=== PATIENT | male | born 1980 | race Caucasian/White ===

== ENCOUNTER 2019-01-24 13:55 | Emergency (ER) | payer BC ==
[2019-01-24] MEDS ORDERED: Lidocaine 1% 10 ML MDV INJECT ONE (14:44)
[2019-01-24] MEDS ORDERED: Diphtheria,Pertussis(Acell),Tetanus Vaccine 0.5 ML Syringe IM ONE (14:44)
--- NOTE | 2019-01-24 14:52 | EDM.PDOC ---
ED HPI GENERAL MEDICAL PROBLEM - General Chief Complaint: Laceration Stated Complaint: LT POINTER FINGER LAC Time Seen by Provider: 01/24/19 14:17 Source of Information: Reports: Patient, RN Notes Reviewed History Limitations: Reports: No Limitations - History of Present Illness INITIAL COMMENTS - FREE TEXT/NARRATIVE: Patient is a 38-year-old male who presents to the ED for evaluation of a left pointer finger laceration. Patient states shortly prior to arrival to the ER, he was using a utility knife, and ended up slicing his left pointer finger. This resulted in a roughly 2 cm linear laceration to the lateral aspect of the distal fingertip of the left pointer finger. Patient states that the bleeding was under control, but he wasn't sure if it was deep enough to need stitches or not, so he comes here for evaluation. Patient states he is not sure when his last tetanus was given. He denies any numbness and tingling distal to the injury site. He can move his finger in all range of motion. He is right hand dominant. Left Finger-Little Pain Score (Numeric/FACES): 1 - Related Data Allergies Allergy/AdvReac Type Severity Reaction Status Date / Time desloratadine Allergy Other Verified 01/24/19 14:20 [From Clarinex-D] pseudoephedrine Allergy Other Verified 01/24/19 14:20 [From Clarinex-D] Home Meds: Home Meds Dicyclomine [Bentyl] 10 mg PO DAILY 01/24/19 [History] Pantoprazole Sodium [Protonix] 20 mg PO DAILY 01/24/19 [History] Sertraline [Zoloft] 100 mg PO DAILY 01/24/19 [History] Sucralfate [Carafate] 1 gm PO QID PRN 01/24/19 [History] Past Medical History - Past Surgical History HEENT Surgical History: Reports: Myringotomy w Tube(s) Male Surgical History: Reports: Vasectomy Social & Family History - Tobacco Use Smoking Status *Q: Current Every Day Smoker Years of Tobacco use: 25 Packs/Tins Daily: 1 - Caffeine Use Caffeine Use: Reports: Coffee, Energy Drinks - Recreational Drug Use Recreational Drug Use: No ED ROS GENERAL - Review of Systems Review Of Systems: Comprehensive ROS is negative, except as noted in HPI. Skin: Reports: Wound (2cm linear lac to L lateral pointer finger) Neurological: Denies: Numbness, Tingling ED EXAM, SKIN/RASH Exam: See Below Exam Limited By: No Limitations General Appearance: Alert, WD/WN, No Apparent Distress Respiratory/Chest: No Respiratory Distress, Lungs Clear, Normal Breath Sounds, No Accessory Muscle Use, Chest Non-Tender Cardiovascular: Normal Peripheral Pulses, Regular Rate, Rhythm, No Murmur Peripheral Pulses: 3+: Radial (L), Radial (R) Extremities: Normal Range of Motion, Non-Tender, Normal Capillary Refill Neurological: Alert, Oriented, Normal Cognition, No Motor/Sensory Deficits Psychiatric: Normal Affect, Normal Mood Skin: Warm, Dry, Normal Color, No Rash, Wound/Incision (2 cm linear laceration to distal Left lateral pointer finger, this did involve a small bit of the nail , but is well intact, no disruption of the nailbed was noted.) ED SKIN PROCEDURES - Laceration/Wound Repair Left Lateral Distal Digit - 2nd (Index) Appearance: Superficial, Linear, Clean Distal NVT: Neuro & Vascular Intact, No Tendon Injury Anesthetic Type: Local Local Anesthesia - Lidocaine (Xylocaine): 1% Plain Local Anesthetic Volume: 3cc Skin Prep: Chlorhexidine (Hibiciens), Saline Exploration/Debridement/Repair: Wound Explored, In a Bloodless Field, Explored to Base, No Foreign Material Found Closed with: Sutures Lac/Wound length In cm: 2 Suture Size: 4-0 # of Sutures: 5 Suture Type: Prolene, Interrupted, Simple Sterile Dressing Applied: Nurse Tetanus Status Addressed: Yes (Tdap given today) Complications: No Course - Vital Signs Last Recorded V/S: Last Vital Signs Temp 98.2 F 01/24/19 14:17 Pulse 72 01/24/19 14:17 Resp 18 01/24/19 14:17 BP 158/105 H 01/24/19 14:17 Pulse Ox 98 01/24/19 14:17 - Orders/Labs/Meds Orders: Active Orders 24 hr Category Date Time Status Vaccines to be Administered [RC] PER UNIT ROUTINE Care 01/24/19 14:44 Ordered Meds: Medications Discontinued Medications Generic Name Dose Route Start Last Admin Trade Name Freq PRN Reason Stop Dose Admin Diphtheria/Tetanus/Acell Pertussis 0.5 ml 01/24/19 14:44 01/24/19 14:58 Adacel IM 01/24/19 14:45 0.5 ml .ONCE ONE Administration Lidocaine HCl 10 ml 01/24/19 14:44 01/24/19 14:58 Xylocaine 1% INJECT 01/24/19 14:45 10 ml ONETIME ONE Administration Departure - Departure Time of Disposition: 14:56 Disposition: Home, Self-Care 01 Condition: Fair Clinical Impression: Laceration of left index finger with damage to nail Qualifiers: Encounter type: initial encounter Foreign body presence: without foreign body Qualified Code(s): S61.311A - Laceration without foreign body of left index finger with damage to nail, initial encounter - Discharge Information *PRESCRIPTION DRUG MONITORING PROGRAM REVIEWED*: No *COPY OF PRESCRIPTION DRUG MONITORING REPORT IN PATIENT ADARSH: No Instructions: Sutured Wound Care, [id number] Referrals: PCP,None [Primary Care Provider] - Forms: ED Department Discharge Additional Instructions: You have been evaluated in the ED for your laceration. Sutures will need to stay in for 10-14 days (02/03/19 - 02/07/19) You may return to the ED or clinic for removal. Please keep this area clean and dry, you may cleanse with regular soap and water. No vigorous scrubbing. Do not submerge the hand in water. Watch out for signs of infection like increased redness, swelling, pain at the laceration site, or if you should develop any fevers or chills. Please return to ED if your symptoms change or worsen. Sepsis Event Note - Evaluation Sepsis Screening Result: No Definite Risk - Focused Exam Vital Signs: Vital Signs Temp Pulse Resp BP Pulse Ox 01/24/19 14:17 98.2 F 72 18 158/105 H 98 Date Exam was Performed: 01/24/19 Time Exam was Performed: 15:22 - My Orders Last 24 Hours: My Active Orders 01/24/19 14:44 Vaccines to be Administered [RC] PER UNIT ROUTINE - Assessment/Plan Last 24 Hours: My Active Orders 01/24/19 14:44 Vaccines to be Administered [RC] PER UNIT ROUTINE
== END 2019-01-24 15:39 | disposition home or self-care (01) ==
LOC: JD.ED 13:55
DX: S61.311A Laceration without foreign body of left index finger with damage to nail, initial encounter (principal); Z88.8 Allergy status to other drugs, medicaments and biological substances; Z23 Encounter for immunization; F17.210 Nicotine dependence, cigarettes, uncomplicated; W26.0XXA Contact with knife, initial encounter; Y93.89 Activity, other specified
CPT/HCPCS: 12001; 90471; 90715; 99282; J2001

== ENCOUNTER 2020-12-31 08:51 | Emergency (ER) | payer BC, OTHER ==
--- NOTE | 2020-12-31 09:25 | EDM.PDOC ---
ED HPI GENERAL MEDICAL PROBLEM - General Chief Complaint: Chest Pain Stated Complaint: CHEST PAIN STARTED YESTERDAY Time Seen by Provider: 12/31/20 09:48 Source of Information: Reports: Patient History Limitations: Reports: No Limitations - History of Present Illness INITIAL COMMENTS - FREE TEXT/NARRATIVE: Patient is a 40-year-old male presented to the emergency room with a chief complaint of chest pain. Chest pain is located on the right side of his chest. Chest pain has been ongoing since yesterday. The pain seems to radiate upwards. Pain is relatively constant and does not change at all with exertion. He has taken Protonix and Carafate as well as Tylenol with little relief. The patient has no associated cough, shortness of breath, headache, nausea, vomiting. The patient has a history of hypertension and smoking. He only recently started taking his blood pressure medications in the last 5 days. Notes home blood pressures have been running in the systolic 150s. Does not have any prior history of cardiovascular disease. He does not have any history of calf pain/swelling, DVT, PE, recent hospitalization. Right upper chest Pain Score (Numeric/FACES): 2 - Related Data Allergies Allergy/AdvReac Type Severity Reaction Status Date / Time desloratadine Allergy Other Verified 12/31/20 09:08 [From Clarinex-D] pseudoephedrine Allergy Other Verified 12/31/20 09:08 [From Clarinex-D] Home Meds: Home Meds Dicyclomine [Bentyl] 20 mg PO DAILY PRN 01/24/19 [History] Pantoprazole Sodium [Protonix] 40 mg PO DAILY 01/24/19 [History] Sertraline [Zoloft] 100 mg PO DAILY 01/24/19 [History] Sucralfate [Carafate] 1 gm PO QID PRN 01/24/19 [History] Chlorthalidone 25 mg PO DAILY 12/31/20 [History] Meloxicam 15 mg PO DAILY PRN 12/31/20 [History] lisinopriL [Lisinopril] 20 mg PO DAILY 12/31/20 [History] Past Medical History Cardiovascular History: Reports: Hypertension Gastrointestinal History: Reports: Irritable Bowel Syndrome Musculoskeletal History: Reports: Arthritis, Other (See Below) Other Musculoskeletal History: Torn R rotator cuff Psychiatric History: Reports: Depression Dermatologic History: Reports: Eczema, Psoriasis - Past Surgical History HEENT Surgical History: Reports: Myringotomy w Tube(s) Male Surgical History: Reports: Vasectomy Social & Family History - Family History Family Medical History: No Pertinent Family History - Tobacco Use Tobacco Use Status *Q: Current Every Day Tobacco User Years of Tobacco use: 20 Packs/Tins Daily: 1 - Caffeine Use Caffeine Use: Reports: Coffee, Soda - Recreational Drug Use Recreational Drug Use: No ED ROS GENERAL - Review of Systems Review Of Systems: See Below Free Text/Narrative/Comment: In addition to that documented in the HPI above, the additional ROS was obtained: Constitutional: Denies fevers or chills Eyes: Denies vision changes ENMT: Denies sore throat CV: Per HPI Resp: Denies SOB GI: Denies vomiting or diarrhea : Denies painful urination MSK: Denies recent trauma Skin: Denies new rashes Neuro: Denies new numbness or tingling or weakness Endocrine: Denies unexpected weight loss Heme: Denies bleeding disorders ED EXAM, GENERAL - Physical Exam Exam: See Below Free Text/Narrative:: I have reviewed the triage vital signs Const: Well nourished, well developed, appears stated age Eyes: Pupils Equal and reactive to light bilaterally, no conjunctival injection HENT: No signs of trauma or swelling, Neck supple without meningismus CV: Regular Rate Rhythm, Warm, well-perfused extremities RESP: Unlabored respiratory effort GI: soft, non-tender, non-distended, no masses MSK: No gross deformities appreciated Skin: Warm, dry. No rashes Neuro: Alert, business relationship manager II-XII grossly intact. Sensation and motor function of extremities grossly intact. Psych: Appropriate mood and affect. #1 Interpretation EKG Date: 12/31/20 Time: 08:58 Rhythm: NSR Rate (Beats/Min): 78 Woodruff: Normal P-Wave: Present QRS: Normal ST-T: Normal QT: Normal Comparison: NA - No Prior EKG EKG Interpretation Comments: benign early repol. otherwise normal ekg Course - Vital Signs Last Recorded V/S: Last Vital Signs Temp 37.4 C 12/31/20 09:06 Pulse 77 12/31/20 11:03 Resp 16 12/31/20 11:03 BP 158/100 H 12/31/20 11:03 Pulse Ox 99 12/31/20 11:03 - Orders/Labs/Meds Labs: Laboratory Tests 12/31/20 12/31/20 12/31/20 Range/Units 09:05 09:05 09:05 WBC 8.65 (4.23-9.07) K/mm3 RBC 4.97 (4.63-6.08) M/mm3 Hgb 16.6 (13.7-17.5) gm/dl Hct 47.6 (40.1-51.0) % MCV 95.8 H (79.0-92.2) fl MCH 33.4 H (25.7-32.2) pg MCHC 34.9 (32.2-35.5) g/dl RDW Std Deviation 46.2 H (35.1-43.9) fL Plt Count 191 (163-337) K/mm3 MPV 11.2 (9.4-12.3) fl Neut % (Auto) 72.2 H (34.0-67.9) % Lymph % (Auto) 15.6 L (21.8-53.1) % Garfield % (Auto) 9.8 (5.3-12.2) % Eos % (Auto) 2.0 (0.8-7.0) Baso % (Auto) 0.2 (0.1-1.2) % Neut # (Auto) 6.24 H (1.78-5.38) K/mm3 Lymph # (Auto) 1.35 (1.32-3.57) K/mm3 Garfield # (Auto) 0.85 H (0.30-0.82) K/mm3 Eos # (Auto) 0.17 (0.04-0.54) K/mm3 Baso # (Auto) 0.02 (0.01-0.08) K/mm3 PT 10.2 (9.7-12.0) SECONDS INR < 0.93 Sodium 137 (136-145) mEq/L Potassium 3.8 (3.5-5.1) mEq/L Chloride 100 (98-107) mEq/L Carbon Dioxide 31 (21-32) mEq/L Anion Gap 9.8 (5-15) BUN 15 (7-18) mg/dL Creatinine 1.0 (0.7-1.3) mg/dL Est Cr Clr Drug Dosing 102.49 mL/min Estimated GFR (MDRD) > 60 (>60) mL/min BUN/Creatinine Ratio 15.0 (14-18) Glucose 99 (70-99) mg/dL Calcium 9.2 (8.5-10.1) mg/dL Total Bilirubin 0.5 (0.2-1.0) mg/dL AST 25 (15-37) U/L ALT 39 (16-63) U/L Alkaline Phosphatase 56 (46-116) U/L Troponin I < 0.017 (0.00-0.056) ng/mL Total Protein 7.9 (6.4-8.2) g/dl Albumin 3.9 (3.4-5.0) g/dl Globulin 4.0 gm/dL Albumin/Globulin Ratio 1.0 (1-2) 12/31/20 Range/Units 11:10 WBC (4.23-9.07) K/mm3 RBC (4.63-6.08) M/mm3 Hgb (13.7-17.5) gm/dl Hct (40.1-51.0) % MCV (79.0-92.2) fl MCH (25.7-32.2) pg MCHC (32.2-35.5) g/dl RDW Std Deviation (35.1-43.9) fL Plt Count (163-337) K/mm3 MPV (9.4-12.3) fl Neut % (Auto) (34.0-67.9) % Lymph % (Auto) (21.8-53.1) % Garfield % (Auto) (5.3-12.2) % Eos % (Auto) (0.8-7.0) Baso % (Auto) (0.1-1.2) % Neut # (Auto) (1.78-5.38) K/mm3 Lymph # (Auto) (1.32-3.57) K/mm3 Garfield # (Auto) (0.30-0.82) K/mm3 Eos # (Auto) (0.04-0.54) K/mm3 Baso # (Auto) (0.01-0.08) K/mm3 PT (9.7-12.0) SECONDS INR Sodium (136-145) mEq/L Potassium (3.5-5.1) mEq/L Chloride (98-107) mEq/L Carbon Dioxide (21-32) mEq/L Anion Gap (5-15) BUN (7-18) mg/dL Creatinine (0.7-1.3) mg/dL Est Cr Clr Drug Dosing mL/min Estimated GFR (MDRD) (>60) mL/min BUN/Creatinine Ratio (14-18) Glucose (70-99) mg/dL Calcium (8.5-10.1) mg/dL Total Bilirubin (0.2-1.0) mg/dL AST (15-37) U/L ALT (16-63) U/L Alkaline Phosphatase (46-116) U/L Troponin I < 0.017 (0.00-0.056) ng/mL Total Protein (6.4-8.2) g/dl Albumin (3.4-5.0) g/dl Globulin gm/dL Albumin/Globulin Ratio (1-2) Meds: Medications Discontinued Medications Generic Name Dose Route Start Last Admin Trade Name Freq PRN Reason Stop Dose Admin Ketorolac Tromethamine 15 mg 12/31/20 10:15 12/31/20 10:38 Ketorolac 15 Mg/Ml Sdv IVPUSH 12/31/20 10:16 15 mg ONETIME ONE Administration Departure - Departure Time of Disposition: 12:04 Disposition: Home, Self-Care 01 Clinical Impression: Atypical chest pain Instructions: Nonspecific Chest Pain, Adult Referrals: PCP,None [Primary Care Provider] - Forms: ED Department Discharge Additional Instructions: Please take your high blood pressure medication as previously checked by her primary care physician. I do recommend following up with primary care in the next 1 week. Sepsis Event Note (ED) - Focused Exam Vital Signs: Vital Signs Temp Pulse Resp BP Pulse Ox 12/31/20 11:03 77 16 158/100 H 99 12/31/20 09:28 82 24 H 154/114 H 100 12/31/20 09:06 37.4 C 86 19 166/114 H 100 - Assessment/Plan Assessment:: Patient is a 40-year-old male presented to emergency room with chest pain. Unremarkable ER course. EKG demonstrates normal sinus rhythm. No evidence of ischemic changes. Differential diagnosis for this patient include PE, ACS, aortic dissection. Patient is PERC negative. Serial troponins were unremarkable in the emergency room. No evidence of mediastinal widening on chest x-ray. At this point, patient is a heart score of 2 and can be managed as an outpatient. Return precautions discussed as usual. Patient did feel better after ketorolac in the emergency room. Possible costochondritis. Discharged in stable condition.
--- NOTE | 2020-12-31 10:06 | CR ---
Chest: Portable view of the chest was obtained. Comparison: No prior chest imaging is available. Heart size and mediastinum are normal. Lungs are clear with no acute parenchymal change. Bony structures show nothing acute. Impression: 1. Nothing acute is seen on portable chest x-ray. Diagnostic code #1
[2020-12-31] MEDS ORDERED: Ketorolac 15 MG/ML SDV IVPUSH ONE (10:15)
== END 2020-12-31 12:23 | disposition home or self-care (01) ==
LOC: JD.ED 08:51
DX: R07.89 Other chest pain (principal); I10 Essential (primary) hypertension; Z72.0 Tobacco use; Z88.8 Allergy status to other drugs, medicaments and biological substances; Z79.899 Other long term (current) drug therapy
CPT/HCPCS: 36415; 71045; 80053; 84484; 85025; 85610; 96374; 99285; J1885

== ENCOUNTER 2021-08-16 06:59 | Emergency (ER) | payer OTHER ==
[2021-08-16] MEDS ORDERED: Aspirin 81 MG Tab.Chew PO ONE (07:18)
[2021-08-16] MEDS ORDERED: Sodium Chloride 0.9% 10 ML Syringe FLUSH PRN (07:18)
[2021-08-16] MEDS ORDERED: Ondansetron 4 MG/2 ML SDV IVPUSH ONE (07:20)
[2021-08-16 08:00] LABS: ESTIMATED GFR 77 mL/min (>60)
[2021-08-16] MEDS ORDERED: HYDROmorphone 1 MG/ML Syringe IVPUSH ONE ×2 (08:10→09:43)
[2021-08-16] MEDS ORDERED: Alum Hydrox/Mag Hydrox/Simeth 30 ML, Lidocaine 2% 15 ML PO ONE ×2 (08:10)
[2021-08-16] MEDS ORDERED: Pantoprazole 40 MG Vial IVPUSH ONE (08:10)
[2021-08-16] MEDS ORDERED: Metoclopramide 10 MG/2 ML SDV IVPUSH ONE (08:15)
== END 2021-08-16 11:00 | disposition home or self-care (01) ==
LOC: JD.ED 06:59
DX: R07.89 Other chest pain (principal); K21.00 Gastro-esophageal reflux disease with esophagitis, without bleeding; I10 Essential (primary) hypertension; Z88.8 Allergy status to other drugs, medicaments and biological substances; Z79.899 Other long term (current) drug therapy
CPT/HCPCS: 36415; 71045; 80053; 84484; 85025; 85379; 93005; 96374; 96375; 96376; 99285; A9270; C9113; J1170; J2405; J2765; J3490; 93010; 99284

== ENCOUNTER 2023-02-27 23:12 | Emergency (ER) | payer OTHER | END 2023-02-28 00:17 | disposition home or self-care (01) | LOC: JD.ED 23:12 | DX: R05.9 Cough, unspecified (principal); R55 Syncope and collapse; I10 Essential (primary) hypertension | CPT/HCPCS: 99283 ==